=== PATIENT | male | born 2000 | race Caucasian/White ===

== ENCOUNTER 2019-02-19 17:20 | Emergency (ER) | payer BC ==
[~2019-02-19] VITALS: Ht 182.9 cm; Wt 167.8 kg
--- OUTSIDE RECORDS SUMMARY | 2019-02-19 17:21 | XMS REPORT | Encounter Summary ---
Author Organization Unknown Address [address] [place] [address] Phone [phone] Care Team Providers Care Cash Applications Coordinator Name Role Phone Aquilino Junior 3 [phone] Reason for Visit Immunization Instructions 1. Immunization Menactra (PF) 4 mcg/0.5 mL intramuscular solution 2. Body mass index 40+ - severely obese body mass index: care instructions 3. Counseling Discussion Note Pt is in NAD; Verbalizes understanding of all instructions with no questions at this time. Plan of Care Patient Instructions Refer to your VIS handout as discussed in clinic today regarding your care after administration. Follow up with your PCP as needed. In case of emergecy call 911 or go to nearest ER. Reminders Provider Appointments None recorded. Lab None recorded. Referral None recorded. Procedures None recorded. Surgeries None recorded. Imaging None recorded. Medications No Medications Reported Medications Administered None recorded. Vitals Height Weight BMI Blood Pressure 6 ft 2 in 360 lbs 46.2 kg/m2 Lab Results None recorded. Allergies Code Code System Name Reaction Severity Status Onset NKDA Problems Name Status Onset Date Source Immunization Active 06/04/2018 Counseling Active 06/04/2018 Body Mass Index 40+ - Severely Obese Active 06/04/2018 Procedures None recorded. Vaccine List Vaccine Type meningococcal MCV4P 06/04/20180.5 mL Tdap 10/25/2011 Social History Smoking Status Never Smoker Past Encounters 06/04/2018 Immunization; Body Mass Index 40+ - Severely Obese; Counseling Jane Forrest, A[facility]-C: [address] [place] [address], Ph. History of Present Illness Immunization Reported By: Patient HPI: Immunization Request (normal) no symptoms. Immunization eligibility questions No vaccines in last month, No reaction to previous vaccines:, No Known Allergies Review of Systems Basic Reported By: Patient Constitutional: Constitutional: no fever Eyes: Eyes: no eye complaints Iztr-Apoq-Ojtga-Throat: Ears: no ear complaints. Nose: no nose/sinus problems. Mouth/Throat: no sore throat, no bleeding gums, no mouth complaints, no teeth problems Cardiovascular: Cardiovascular: no chest pain, no shortness of breath, no known heart murmur Respiratory: Respiratory: no cough, no wheezing, no shortness of breath Gastrointestinal: Gastrointestinal: no abdominal pain, no vomiting / diarrhea Genitourinary: Genitourinary: no urinary complaints, no discharge Musculoskeletal: Musculoskeletal: no muscle aches, no muscle weakness, no arthralgias/joint pain, no back pain Skin: Skin: no abnormal / changing mole, no jaundice, no rashes Neurologic: Neurologic: no loss of consciousness, no weakness, no numbness, no seizures, no dizziness, no headaches Physical Exam Immunization Reported By: Patient General Appearance: General: no acute distress, morbidly obese
--- OUTSIDE RECORDS SUMMARY | 2019-02-19 17:21 | XMS REPORT | Continuity of Care Document ---
Author Author [facility] Interface Address Unknown Phone Unavailable Problems Problem Status Onset Date Classification Date Reported Comments Source Body mass index 40+ - severely obese 06/04/2018 Diagnosis 06/04/2018 [facility] Immunization 06/04/2018 Problem 06/04/2018 [facility] Counseling 06/04/2018 Problem 06/04/2018 [facility] Body Mass Index 40+ - Severely Obese 06/04/2018 Problem 06/04/2018 [facility] Medications Medication Details Route Status Patient Instructions Ordering Provider Order Date Source No Medications Reported No Medications Reported Active [facility] Allergies, Adverse Reactions, Alerts Substance Category Reaction Severity Reaction type Status Date Reported Comments Source Immunizations Immunization Date Given Site Status Last Updated Comments Source meningococcal MCV4P 06/04/2018 completed [facility] Tdap 10/25/2011 completed [facility] Results Order Name Results Value Reference Range Date Interpretation Comments Source Vital Signs Vital Sign Value Date Comments Source Height 74 06/04/2018 [facility] Weight 360 06/04/2018 [facility] Encounters Location Location Details Encounter Type Encounter Number Reason For Visit Attending Provider ADM Date DC Date Status Source [place] - [facility] - [id number] Jane Forrest, PLANT TECHNICIAN/CONTROL ROOM OPERATOR-C: [address] [place] [address], Ph. [id number] Jane Forrest 06/04/2018 [facility] Procedures Procedure Code Date Perfomer Comments Source
--- NOTE | 2019-02-19 17:56 | Diagnostic Imaging Report ---
EXAMINATION: Right shoulder series. CLINICAL HISTORY: Status post fall, trauma to right shoulder. COMPARISON: None. . Discussion: There is infracoracoid position of the right humeral head, consistent with anterior glenohumeral dislocation. No acute, displaced fracture. No osteolytic or osteoblastic lesions. There is no evidence of a.c. separation. The soft tissues are normal. IMPRESSION: 1. Findings consistent with anterior glenohumeral dislocation. Signed by: Dr. Ghanshyam Khan M.D. on 02/19/2019 5:53 PM
--- NOTE | 2019-02-19 18:07 | Diagnostic Imaging Report ---
EXAMINATION: Right shoulder AP film. CLINICAL HISTORY: Action. COMPARISON: Shoulder films 02/19/2019. Discussion: Normal mineralization. The right humeral head appears aligned with the glenoid in this single AP view. No acute, displaced fracture or dislocation. IMPRESSION: 1. Post reduction film, with right humeral head projecting aligned with the glenoid in this single AP view. Signed by: Dr. Ghanshyam Khan M.D. on 02/19/2019 6:04 PM
[2019-02-19] MEDS ORDERED: HYDROCODONE/APAP 10MG-325MG TAB PO ONE (18:30)
== END 2019-02-19 18:52 | disposition home or self-care (01) ==
LOC: ER 17:20
DX: M25.511 Pain in right shoulder (principal); S43.014A Anterior dislocation of right humerus, initial encounter; W01.0XXA Fall on same level from slipping, tripping and stumbling without subsequent striking against object, initial encounter; Y92.008 Other place in unspecified non-institutional (private) residence as the place of occurrence of the external cause; F90.9 Attention-deficit hyperactivity disorder, unspecified type
CPT/HCPCS: 99283

== ENCOUNTER 2019-06-25 12:03 | Emergency (ER) | payer SELFPAY ==
[~2019-06-25] VITALS: Ht 182.9 cm; Wt 167.8 kg
--- OUTSIDE RECORDS SUMMARY | 2019-06-25 12:06 | XMS REPORT ---
Author Author [facility] Address Unknown Phone Unavailable Care Team Providers Care Environmental Change Analyst Name Role Phone Sharri SLADE Unavailable Unavailable Problems This patient has no known problems. Allergies, Adverse Reactions, Alerts This patient has no known allergies or adverse reactions. Medications This patient has no known medications. Results Test Description Test Time Test Comments Text Results Atomic Results Result Comments SHOULDER RIGHT 1 VIEW 2019-02-19 18:03:00 [place] [address] Patient Name: BRENDA FLETCHER MR #: [id number] : 2000 Age/Sex: 18/M Req #: [id number] [facility] Physician: Ordered by: ZHENG THORNTON [employer] Report #: [id number] Location: ER Room/Bed: Procedure: [id number] DX/SHOULDER RIGHT 1 VIEW Exam Date: 02/19/19 Exam Time: 1750 REPORT STATUS: Signed EXAMINATION: Right shoulder AP film. CLINICAL HISTORY: Action. COMPARISON: Shoulder films 02/19/2019. Discussion: Normal mineralization. The right humeral head appears aligned with the glenoid in this single AP view. No acute, displaced fracture or dislocation. IMPRESSION: 1. Post reduction film, with right humeral head projecting aligned with the glenoid in this single AP view. Signed by: Dr. Camilo Khan M.D. on 02/19/2019 6:04 PM Dictated By: CAMILO KHAN MD 03 Transcribed By: TESSA on 02/19/191803 COPY TO: ZHENG THORNTON [employer]IAN SHOULDER RIGHT COMPLETE 2019-02-19 17:48:00 [place] [address] Patient Name: BRENDA FLETCHER MR #: [id number] : 2000 Age/Sex: 18/M Req #: [id number] Adm Physician: Ordered by: GIBRAN SLADE MD Report #: [id number] Location: ER Room/Bed: Procedure: [id number] DX/SHOULDER RIGHT COMPLETE Exam Date: 02/19/19 Exam Time: 1735 REPORT STATUS: Signed EXAMINATION: Right shoulder series. CLINICAL HISTORY: Status post fall, trauma to right shoulder. COMPARISON: None. . Discussion: There is infracoracoid position of the right humeral head, consistent with anterior glenohumeral dislocation. No acute, displaced fracture. No osteolytic or osteoblastic lesions. There is no evidence of a.c. separation. The soft tissues are normal. IMPRESSION: 1. Findings consistent with anterior glenohumeral dislocation. Signed by: Dr. Camilo Khan M.D. on 02/19/2019 5:53 PM Dictated By: CAMILO KHAN MD 52 Transcribed By: TESSA on 02/19/191752 COPY TO: GIBRAN SLADE MD
--- OUTSIDE RECORDS SUMMARY | 2019-06-25 12:06 | XMS REPORT | Continuity of Care Document ---
Author Author [facility] Address Unknown Phone Unavailable Care Team Providers Care Retail Client Solutions Analyst Name Role Phone [employer] Unavailable Unavailable Problems Problem Status Onset Date Classification Date Reported Comments Source Immunization 06/04/2018 Problem 06/04/2018 [facility] Counseling 06/04/2018 Problem 06/04/2018 [facility] Body mass index 40+ - severely obese 06/04/2018 Problem 06/04/2018 [facility] Medications Medication Details Route Status Patient Instructions Ordering Provider Order Date Source No Medications Reported No Medications Reported Active [facility] Allergies, Adverse Reactions, Alerts No Known Medication Allergies Immunizations Immunization Date Given Site Status Last Updated Comments Source meningococcal MCV4P 06/04/2018 completed [facility] Tdap 10/25/2011 completed [facility] Results No Data Provided for This Section Pathology Reports No Data Provided for This Section Diagnostic Reports No Data Provided for This Section Consultation Notes No Data Provided for This Section Discharge Summaries No Data Provided for This Section History and Physicals No Data Provided for This Section Vital Signs Vital Sign Value Date Comments Source Height 74 06/04/2018 [facility] Weight 360 06/04/2018 [facility] Encounters Location Location Details Encounter Type Encounter Number Reason For Visit Attending Provider ADM Date DC Date Status Source [place] - [facility] - [id number] Jane Forrest, [facility] [address] [facility] [place] [address], Ph. [id number] Jane Forrest 06/04/2018 [facility] Procedures No Data Provided for This Section Assessment and Plan No Data Provided for This Section Plan of Care No Data Provided for This Section Social History Social History Date Source Smoking Status Never Smoker 06/04/2018 [facility] Family History No Data Provided for This Section Advance Directives No Data Provided for This Section Functional Status No Data Provided for This Section
--- NOTE | 2019-06-25 12:16 | NUR ---
PT BROUGHT BACK STAT TO ROOM 5 AT THIS TIME FOR RT SHOULDER REDUCTION BY DR. FRAZIER WITH ASSISTANCE FROM ZHENG THORNTON ENP. PT IN OBVIOUS DISCOMFORT, BUT TOLERATING WELL AT THIS TIME.
--- NOTE | 2019-06-25 12:18 | NUR ---
PER FELIBERTO CALZADA AND DR. FRAZIER SUCCESSFUL SHOULDER REDUCTION AT THIS TIME, AWAITING POST-REDUCTION X-RAY AT THIS TIME; PT BREATHING EVEN/UNLABORED.
--- NOTE | 2019-06-25 12:35 | NUR ---
RADIOLOGY AT BEDSIDE FOR POST-REDUCTION LT SHOULDER X-RAY AT THIS TIME.
--- NOTE | 2019-06-25 13:27 | Diagnostic Imaging Report ---
RIGHT SHOULDER - 3 Image(s) HISTORY: Post reduction COMPARISON: Shoulder radiographs February 19, 2019 FINDINGS: Internal rotation view and 2 oblique scapular Y views. Bones: No acute displaced fracture. Stable appearing small foci deformity. Joints: Given the absence of the external rotation view, the glenohumeral joint appears in anatomic alignment. Soft tissues: The soft tissues appear unremarkable. IMPRESSION: 1. Stable small Hill-Sachs deformity, compatible with prior anterior shoulder dislocation. 2. No evidence of persistent dislocation given the provided images. If further evaluation is warranted, recommend obtaining an external rotation view and axillary view. Signed by: Dr. Osito Bosch D.O., M.M.M. on 06/25/2019 1:24 PM
[2019-06-25 13:47] VITALS: BP 114/57
== END 2019-06-25 13:50 | disposition home or self-care (01) ==
LOC: ER 12:03
DX: S43.014A Anterior dislocation of right humerus, initial encounter (principal); X50.1XXA Overexertion from prolonged static or awkward postures, initial encounter; Y92.008 Other place in unspecified non-institutional (private) residence as the place of occurrence of the external cause; F90.9 Attention-deficit hyperactivity disorder, unspecified type
CPT/HCPCS: 99283